=== PATIENT | female | born 1995 | race Caucasian/White ===

== ENCOUNTER 2021-11-11 17:11 | Emergency (ER) | payer BC ==
[~2021-11-11] VITALS: Ht 172.7 cm; Wt 87.5 kg
[2021-11-11 17:11] VITALS: BP_SYST 123
--- NOTE | 2021-11-11 17:11 | NUR ---
TRIAGED AND BROUGHT BACK TO BED #6 VIA WHEELCHAIR, REPORT GIVEN TO SARAVANAN
[2021-11-11] MEDS ORDERED: DIPHENHYDRAMINE INJ 50 MG/ML VIAL IVP ONE (17:45)
[2021-11-11] MEDS ORDERED: METOCLOPRAMIDE HCL 10 MG/2 ML VIAL IVP ONE (17:45)
[2021-11-11] MEDS ORDERED: NACL 0.9% 1,000 ML IV ONE (17:45)
[2021-11-11 17:51] LABS: BASOPHILS # (AUTO) 0.1 K/uL (0.0-0.2); BASOPHILS % (AUTO) 0.5 % (0.0-2.0); EOSINOPHILS % (AUTO) 0.1 % (0.0-4.0); HEMATOCRIT 39.3 % (36-48); HEMOGLOBIN 13.4 g/dL (12.0-16.0); LYMPHOCYTES # (AUTO) 1.3 K/uL (1.0-5.5); LYMPHOCYTES % (AUTO) 9.6 % (20.5-51.5); MEAN CORPUSCULAR HEMOGLOBIN 28 pg (27-31); MEAN CORPUSCULAR HGB CONC 34 % (32-36); MEAN CORPUSCULAR VOLUME 82 fL (79.0-98.0); MONOCYTES # (AUTO) 0.7 K/uL (0.0-1.0); MONOCYTES % (AUTO) 5.4 % (1.7-9.3); NEUTROPHILS # (AUTO) 11.5 K/uL (1.8-7.7); NEUTROPHILS % (AUTO) 84.4 % (40.0-70.0); PLATELET COUNT (AUTO) 313 K/uL (130-430); RED BLOOD CELL COUNT(AUTO) 4.78 MIL/uL (4.2-6.2); RED CELL DISTRIBUTION WIDTH 12.9 % (9.0-15.0); WHITE BLOOD COUNT (AUTO) 13.7 K/uL (4.8-10.8)
[2021-11-11 18:16] LABS: CREATININE 0.61 mg/dL (0.55-1.30); POTASSIUM 3.2 mmol/L (3.5-5.1)
[2021-11-11 18:22] LABS: ALBUMIN 3.5 g/dL (3.4-4.8); TOTAL BILIRUBIN 0.6 mg/dL (0.0-1.0)
--- NOTE | 2021-11-11 18:34 | NUR ---
COVID VITOR SWAB OBTAINED AND SENT TO THE LAB.
[2021-11-11] MEDS ORDERED: POTASSIUM CHLORIDE 20 MEQ/PKT PACKET PO ONE (18:45)
--- NOTE | 2021-11-11 18:50 | NUR ---
DR MELO AT BEDSIDE FOR EVALUATION
[2021-11-11 19:19] LABS: BILIRUBIN,URINE NEGATIVE (NEGATIVE); BLOOD, URINE NEGATIVE (NEGATIVE); CLARITY/URINE CLEAR (CLEAR); COLOR,URINE YELLOW (YELLOW); GLUCOSE,URINE NEGATIVE (NEGATIVE); KETONES,URINE 3+ (NEGATIVE); LEUKOCYTE ESTERASE ,URINE NEGATIVE (NEGATIVE); NITRITE, URINE NEGATIVE (NEGATIVE); PH,URINE 7.5 (5.0-8.0); PROTEIN URINE NEGATIVE (NEGATIVE); UROBILINOGEN,URINE 0.2 (0.2-1.0)
[2021-11-11] MEDS ORDERED: cephALEXin 500 MG CAPSULE PO ONE (19:30)
--- NOTE | 2021-11-11 19:31 | NUR ---
PT BIB FAMILY WITH C/C OF 8 WEEKS GESTATION, , WITH PERSISTENT N/V AND DIZZINESS. REPORTS BEING IN THE ER 2 NIGHTS AGO. STATED BENADRYL AND ZOFRAN GIVEN INEFFECTIVE. TAKE PO ZOFRAN AT HOME THAT DOES NOT WORK. UNABLE TO TOLERATE DIET. RECOMMENDED TO COME TO ED BY HER OBGYN. 1L NS BOLUS GIVEN ALONG WITH BENADRYL 25MG AND REGLAN 10 MG IVP. PT NOW STATED SHE FEELS MUCH BETTER BUT STILL HAS SOME DIZZINESS. REPORTED OFF TO KATIA GOMEZ.
--- NOTE | 2021-11-11 19:38 | NUR ---
JASON Banegas RN PT ENDORSED BY RAQUEL MONTALVO, PT IN BED LOCKED IN LOW POSITION IN STABLE CONDITION. PER MD PT READY FOR D/C. IV TO LEFT AC D/C INTACT. WILL CONTINUE TO MONITOR.
[2021-11-11 20:02] VITALS: BP_SYST 124
[2021-11-11 20:07] LABS: BACTERIA,URINE FEW /HPF (None Seen); MUCUS,URINE 1+ /LPF (None Seen); RBC,URINE NONE SEEN /HPF (0-3); WBC,URINE NONE SEEN /HPF (0-3)
[2021-11-11 20:16] LABS: BARBITURATE, URINE NEGATIVE (NEG <=200); BENZODIAZEPINE, URINE NEGATIVE (NEG <=150); CANNABINOID, URINE NEGATIVE (NEG <=50); COCAINE, URINE NEGATIVE (NEG <=150); METHAMPHETAMINES SCREEN,URINE NEGATIVE (NEG <=500); URINE AMPHETAMINE NEGATIVE (NEG <=500); URINE METHADONE NEGATIVE (NEG <=200)
[2021-11-11 20:17] LABS: OPIATE, URINE POSITIVE (NEG <=100); PHENCYCLIDINE SCREEN,URINE NEGATIVE (NEG <=25); UR TRICYCLIC ANTIDEPRESSANTS NEGATIVE (NEG <=300); URINE OXYCODONE SCREEN NEGATIVE (NEG <=100); URINE PROPOXYPHENE SCREEN NEGATIVE (NEG <=300)
== END 2021-11-11 20:02 | disposition home or self-care (01) ==
LOC: SED 17:11
DX: O21.9 Vomiting of pregnancy, unspecified (principal); Z88.1 Allergy status to other antibiotic agents; Z79.899 Other long term (current) drug therapy; Z3A.12 12 weeks gestation of pregnancy
CPT/HCPCS: 99284; 96374; 96361; 96375; 80307; 80053; 83690; 85025; 36415; 81025; 81000; J1200; J2765; J7030

== ENCOUNTER 2021-11-13 16:19 | Emergency (ER) | payer BC ==
[~2021-11-13] VITALS: Ht 172.7 cm; Wt 86.2 kg
[2021-11-13 16:55] VITALS: BP_SYST 125
--- NOTE | 2021-11-13 17:04 | NUR ---
Patient triaged and placed in waiting room. VSS and patient appears in no acute distress at this time. Accompanied by SIGNIFICANT, awaiting available bed, and MD notified of need for MSE.
[2021-11-13] MEDS ORDERED: NACL 0.9% 1,000 ML IV ONE ×2 (18:00→19:30)
[2021-11-13] MEDS ORDERED: ONDANSETRON HCL 4 MG/2 ML VIAL IVP ONE (18:00)
[2021-11-13] MEDS ORDERED: MORPHINE 4 MG INJ. 4 MG/ML VIAL IVP ONE (18:15)
[2021-11-13 18:39] LABS: BASOPHILS % (AUTO) 0.3 % (0.0-2.0); EOSINOPHILS % (AUTO) 0.1 % (0.0-4.0); HEMATOCRIT 42.1 % (36-48); HEMOGLOBIN 14.5 g/dL (12.0-16.0); LYMPHOCYTES # (AUTO) 1.5 K/uL (1.0-5.5); LYMPHOCYTES % (AUTO) 9.7 % (20.5-51.5); MEAN CORPUSCULAR HEMOGLOBIN 28 pg (27-31); MEAN CORPUSCULAR HGB CONC 34 % (32-36); MEAN CORPUSCULAR VOLUME 83 fL (79.0-98.0); MONOCYTES # (AUTO) 0.9 K/uL (0.0-1.0); MONOCYTES % (AUTO) 5.8 % (1.7-9.3); NEUTROPHILS # (AUTO) 13.1 K/uL (1.8-7.7); NEUTROPHILS % (AUTO) 84.1 % (40.0-70.0); PLATELET COUNT (AUTO) 311 K/uL (130-430); RED BLOOD CELL COUNT(AUTO) 5.09 MIL/uL (4.2-6.2); WHITE BLOOD COUNT (AUTO) 15.6 K/uL (4.8-10.8)
[2021-11-13 18:43] LABS: CALCIUM 8.8 mg/dL (8.4-11.0); CREATININE 0.66 mg/dL (0.55-1.30)
[2021-11-13] MEDS ORDERED: POTASSIUM CHLORIDE 20 MEQ TAB.PRT.SR PO ONE (19:00)
[2021-11-13 19:11] LABS: ALBUMIN 3.5 g/dL (3.4-4.8)
[2021-11-13 19:17] LABS: BLOOD, URINE NEGATIVE (NEGATIVE); COLOR,URINE YELLOW (YELLOW); GLUCOSE,URINE NEGATIVE (NEGATIVE); KETONES,URINE 3+ (NEGATIVE); LEUKOCYTE ESTERASE ,URINE TRACE (NEGATIVE); NITRITE, URINE NEGATIVE (NEGATIVE); PROTEIN URINE 1+ (NEGATIVE)
[2021-11-13 19:24] LABS: BILIRUBIN,URINE 1+ (NEGATIVE); CLARITY/URINE HAZY (CLEAR)
[2021-11-13 19:25] LABS: BACTERIA,URINE FEW /HPF (None Seen); MUCUS,URINE None Seen /LPF (None Seen); RBC,URINE NONE SEEN /HPF (0-3); URINE AMORPHOUS PHOSPHATES 1+ /HPF (None Seen)
--- NOTE | 2021-11-13 19:28 | NUR ---
CELINA Cortes at bedside.
[2021-11-13] MEDS ORDERED: ONDA-8 TL (20:20)
--- NOTE | 2021-11-13 20:50 | NUR ---
Assisting primary RN Rissa barbosa/ patient care. # 20 gauge angiocath placed to right AC. Use of asceptic technique. Opsite placed over site. Blood return noted. Flushed with 10 cc of normal saline. No evidence of infiltration noted. Patient tolerated well.
--- NOTE | 2021-11-13 21:00 | NUR ---
Patient A/Ox4, VSS, resp even and unlabored. Patient resting comfortably with side rails raised. at bedside. NAD noted at this time.
[2021-11-13] MEDS ORDERED: METOCLOPRAMIDE HCL 10 MG/2 ML VIAL IVP ONE (21:30)
--- NOTE | 2021-11-13 21:45 | NUR ---
Patient states she is still nauseous; CELINA Bradford Addendum: 11/13/21 at 2203 by SDEDVT Patient states she is still nauseous; CELINA Cortes notified.
[2021-11-13 21:59] VITALS: BP_SYST 125
--- NOTE | 2021-11-13 22:15 | NUR ---
Patient given written and verbal discharge instructions and verbalizes understanding. ER MD discussed with patient the results and treatment provided. Patient in stable condition. ID arm band removed. IV catheter removed intact and dressing applied, no active bleeding. Patient educated on pain management and to follow up with PMD. Pain Scale 0/10. Opportunity for questions provided and answered. Medication side effect fact sheet provided. Patient A/Ox4, VSS, resp even and unlabored. NAD noted at this time.
--- NOTE | 2021-11-29 05:52 | NUR ---
ADDENDUM: Nacl 0.9% IV 1,000ml Start time 19:05hr End time 20:05hr
== END 2021-11-13 22:32 | disposition home or self-care (01) ==
LOC: SED 16:19
DX: O21.0 Mild hyperemesis gravidarum (principal); Z79.899 Other long term (current) drug therapy; Z88.1 Allergy status to other antibiotic agents; Z3A.12 12 weeks gestation of pregnancy
CPT/HCPCS: 99284; 96374; 96361; 96375; 80053; 81000; 84702; 85025; 86886; 86900; 86901; 36415; J2765; J2405; J2270; J7030

== ENCOUNTER 2022-12-24 14:04 | Emergency (ER) | payer BC ==
[~2022-12-24] VITALS: Ht 172.7 cm; Wt 108.9 kg
[~2022-12-24 14:04] MED LIST: ONDA-8 TL
[2022-12-24 14:05] VITALS: BP_SYST 159; PULSE 72; RESP 19; TEMP 98; O2SAT 100
[2022-12-24] MEDS ORDERED: ONDANSETRON HCL 4 MG/2 ML VIAL IVP ONE (14:45)
[2022-12-24] MEDS ORDERED: NACL 0.9% 1,000 ML IV ONE ×2 (14:45→16:45)
[2022-12-24] MEDS ORDERED: MORPHINE 4 MG INJ. 4 MG/ML VIAL IVP ONE (14:45)
[2022-12-24 15:29] LABS: BASOPHILS % (AUTO) 0.3 % (0.0-2.0); HEMATOCRIT 38.7 % (36-48); HEMOGLOBIN 12.6 g/dL (12.0-16.0); LYMPHOCYTES # (AUTO) 0.8 K/uL (1.0-5.5); MEAN CORPUSCULAR HEMOGLOBIN 27 pg (27-31); MEAN CORPUSCULAR HGB CONC 33 % (32-36); MEAN CORPUSCULAR VOLUME 84 fL (79.0-98.0); MONOCYTES # (AUTO) 0.4 K/uL (0.0-1.0); MONOCYTES % (AUTO) 2.4 % (1.7-9.3); NEUTROPHILS # (AUTO) 14.2 K/uL (1.8-7.7); NEUTROPHILS % (AUTO) 92.3 % (40.0-70.0); PLATELET COUNT (AUTO) 270 K/uL (130-430); RED BLOOD CELL COUNT(AUTO) 4.61 MIL/uL (4.2-6.2); RED CELL DISTRIBUTION WIDTH 13.9 % (9.0-15.0); WHITE BLOOD COUNT (AUTO) 15.4 K/uL (4.8-10.8)
[2022-12-24 15:33] LABS: ANION GAP 10 (5-15); CARBON DIOXIDE 26 mmol/L (23-29); CHLORIDE 98 mmol/L (98-107); CREATININE 0.69 mg/dL (0.55-1.30); GFR AFRICAN AMERICAN 133 mL/min (>90); GLUCOSE 138 mg/dL (74-106); POTASSIUM 3.8 mmol/L (3.5-5.1); SODIUM SERUM 134 mmol/L (136-145); UREA NITROGEN, BLOOD 9 mg/dL (8-21)
[2022-12-24 15:34] LABS: GFR NON AFRICAN-AMERICAN 110 mL/min (>90)
[2022-12-24 15:41] LABS: ALANINE AMINOTRANSFERASE 12 U/L (12-78); ALBUMIN 3.9 g/dL (3.4-4.8); ASPARTATE AMINOTRANSFERASE 11 U/L (10-37); TOTAL BILIRUBIN 0.4 mg/dL (0.0-1.0); TOTAL PROTEIN, SERUM 7.9 g/dL (6.4-8.3)
[2022-12-24 16:06] LABS: BILIRUBIN,URINE NEGATIVE (NEGATIVE); BLOOD, URINE NEGATIVE (NEGATIVE); CLARITY/URINE Clear (CLEAR); COLOR,URINE YELLOW (YELLOW); GLUCOSE,URINE NEGATIVE (NEGATIVE); KETONES,URINE 2+ (NEGATIVE); LEUKOCYTE ESTERASE ,URINE NEGATIVE (NEGATIVE); NITRITE, URINE NEGATIVE (NEGATIVE); PH,URINE >=9.0 (5.0-8.0); PROTEIN URINE 2+ (NEGATIVE); UROBILINOGEN,URINE 0.2 (0.2-1.0)
[2022-12-24 16:08] LABS: HCG,QUAL RESULT NEGATIVE (NEGATIVE)
[2022-12-24 16:32] LABS: BACTERIA,URINE RARE /HPF (None Seen); MUCUS,URINE None Seen /LPF (None Seen); RBC,URINE 0-3 /HPF (0-3); URINE SULFO SALICYLIC ACID NEGATIVE (NEGATIVE); WBC,URINE 0-3 /HPF (0-3)
[2022-12-24] MEDS ORDERED: KETOROLAC TROMETHAMINE 15 MG VIAL IVP ONE (16:45)
[2022-12-24] MEDS ORDERED: KETOROLAC TROMETHAMINE 30 MG VIAL ONE (17:10)
[2022-12-24] MEDS ORDERED: MECLIZINE HCL 25 MG TABLET (ANITVERT) PO ONE (18:00)
[2022-12-24] MEDS ORDERED: MECL-108 PO (18:35)
[2022-12-24] MEDS ORDERED: IBUP-1969 PO (18:35)
[2022-12-24 19:10] VITALS: BP_SYST 128; PULSE 56; RESP 20; TEMP 97.6; O2SAT 100
== END 2022-12-24 18:55 | disposition home or self-care (01) ==
LOC: SED 14:04
DX: N83.202 Unspecified ovarian cyst, left side (principal); R42 Dizziness and giddiness; R11.2 Nausea with vomiting, unspecified; R10.30 Lower abdominal pain, unspecified; Z88.1 Allergy status to other antibiotic agents; Z79.899 Other long term (current) drug therapy
CPT/HCPCS: 99285; 70450; 96374; 76856; 71045; 96375; 96361; 80053; 81000; 84703; 85025; 84484; 36415; 93005; 76376; 74177; 81025; J8597; J1885; J2405; J2270; Q9967; J7030

== ENCOUNTER 2023-06-20 17:08 | Emergency (ER) | payer BC ==
[~2023-06-20] VITALS: Ht 160 cm; Wt 72.6 kg
[~2023-06-20 17:08] MED LIST changes: +ACET325T PO; +MECL-292 PO; +METO10TA3 PO; -ONDA-8 TL; +ONDA8TAB60 PO
[2023-06-20 17:41] VITALS: BP_SYST 134; PULSE 96; RESP 18; TEMP 98.3; O2SAT 97
[2023-06-20] MEDS: METOCLOPRAMIDE HCL 10 MG/2 ML VIAL IVP ONE (18:01)
[2023-06-20] MEDS: NACL 0.9% 1,000 ML IV ONE (18:04)
[2023-06-20 18:30] LABS: MONOCYTES # (AUTO) 0.2 K/uL (0.0-1.0); RED CELL DISTRIBUTION WIDTH 13.6 % (9.0-15.0)
[2023-06-20 18:37] LABS: BASOPHILS % (AUTO) 0.1 % (0.0-2.0); HEMOGLOBIN 13.5 g/dL (12.0-16.0); LYMPHOCYTES # (AUTO) 0.5 K/uL (1.0-5.5); LYMPHOCYTES % (AUTO) 3.1 % (20.5-51.5); MEAN CORPUSCULAR HEMOGLOBIN 29 pg (27-31); MEAN CORPUSCULAR HGB CONC 35 % (32-36); MEAN CORPUSCULAR VOLUME 85 fL (79.0-98.0); NEUTROPHILS # (AUTO) 15.7 K/uL (1.8-7.7); NEUTROPHILS % (AUTO) 95.8 % (40.0-70.0); PLATELET COUNT (AUTO) 329 K/uL (130-430); RED BLOOD CELL COUNT(AUTO) 4.62 MIL/uL (4.2-6.2); WHITE BLOOD COUNT (AUTO) 16.4 K/uL (4.8-10.8)
[2023-06-20 18:42] LABS: ALBUMIN 3.7 g/dL (3.4-4.8); BILIRUBIN,DIRECT 0.1 mg/dL (0.0-0.3); CALCIUM 9.2 mg/dL (8.4-11.0); CREATININE 0.71 mg/dL (0.55-1.30); POTASSIUM 4.1 mmol/L (3.5-5.1); TOTAL BILIRUBIN 0.3 mg/dL (0.0-1.0); TOTAL PROTEIN, SERUM 7.8 g/dL (6.4-8.3)
[2023-06-20] MEDS: fentaNYL CITRATE/PF 100 MCG/2 ML AMP IVP ONE (19:49)
[2023-06-20] MEDS ORDERED: ONDA-8 TL (20:29)
[2023-06-20 20:52] VITALS: BP_SYST 140; PULSE 97; RESP 16; TEMP 98.3; O2SAT 97
== END 2023-06-20 20:52 | disposition home or self-care (01) ==
LOC: SED 17:08
DX: O21.0 Mild hyperemesis gravidarum (principal); Z88.8 Allergy status to other drugs, medicaments and biological substances; Z3A.01 Less than 8 weeks gestation of pregnancy
CPT/HCPCS: 99284; 96374; 96361; 96375; 80076; 80048; 84702; 83690; 85025; 36415; J2765; J3010

== ENCOUNTER 2023-07-08 07:10 | Observation (INO) | payer BC ==
[~2023-07-08] VITALS: Ht 172.7 cm; Wt 91.6 kg
[~2023-07-08 07:10] MED LIST changes: +ONDA-8 TL
[2023-07-08 07:31] VITALS: BP_SYST 130; PULSE 83; RESP 18; TEMP 98.3; O2SAT 98
[2023-07-08 07:47] LABS: BASOPHILS % (AUTO) 0.2 % (0.0-2.0); EOSINOPHILS % (AUTO) 0.2 % (0.0-4.0); HEMATOCRIT 41.9 % (36-48); HEMOGLOBIN 14.4 g/dL (12.0-16.0); LYMPHOCYTES # (AUTO) 1.3 K/uL (1.0-5.5); LYMPHOCYTES % (AUTO) 10.9 % (20.5-51.5); MEAN CORPUSCULAR HEMOGLOBIN 29 pg (27-31); MEAN CORPUSCULAR HGB CONC 34 % (32-36); MEAN CORPUSCULAR VOLUME 84 fL (79.0-98.0); MONOCYTES # (AUTO) 0.6 K/uL (0.0-1.0); MONOCYTES % (AUTO) 5.3 % (1.7-9.3); NEUTROPHILS % (AUTO) 83.4 % (40.0-70.0); PLATELET COUNT (AUTO) 326 K/uL (130-430); RED CELL DISTRIBUTION WIDTH 13.9 % (9.0-15.0); WHITE BLOOD COUNT (AUTO) 11.9 K/uL (4.8-10.8)
[2023-07-08] MEDS: ONDANSETRON HCL 4 MG/2 ML VIAL IVP ONE (08:08)
[2023-07-08] MEDS: NACL 0.9% 1,000 ML IV ONE (08:09)
[2023-07-08 08:17] LABS: ALANINE AMINOTRANSFERASE 257 U/L (12-78); ALBUMIN 3.5 g/dL (3.4-4.8); AMYLASE 37 U/L (0-100); ANION GAP 13 (5-15); ASPARTATE AMINOTRANSFERASE 64 U/L (10-37); BILIRUBIN,DIRECT 0.3 mg/dL (0.0-0.3); CALCIUM 9.2 mg/dL (8.4-11.0); CARBON DIOXIDE 25 mmol/L (23-29); CHLORIDE 91 mmol/L (98-107); CREATININE 0.71 mg/dL (0.55-1.30); GFR AFRICAN AMERICAN 129 mL/min (>90); GLUCOSE 92 mg/dL (74-106); LIPASE 37 U/L (16-77); SODIUM SERUM 129 mmol/L (136-145); TOTAL BILIRUBIN 0.6 mg/dL (0.0-1.0); TOTAL PROTEIN, SERUM 7.8 g/dL (6.4-8.3); UREA NITROGEN, BLOOD 6 mg/dL (8-21)
[2023-07-08 08:18] LABS: GFR NON AFRICAN-AMERICAN 107 mL/min (>90); HCG,QUANTITATIVE 116582 mIU/ML (0-6)
[2023-07-08 08:29] LABS: POTASSIUM 2.7 mmol/L (3.5-5.1)
[2023-07-08 08:35] LABS: ACETONE, SERUM NEGATIVE (NEGATIVE)
[2023-07-08] MEDS: POTASSIUM CHLORIDE 20 MEQ/PKT PACKET PO ONE (09:35)
[2023-07-08] MEDS: POTASSIUM CHLORIDE 40 MEQ in LR 1,000 ML IV SCH (10:00)
[2023-07-08 11:41] LABS: BILIRUBIN,URINE 2+ (NEGATIVE); BLOOD, URINE NEGATIVE (NEGATIVE); CLARITY/URINE CLEAR (CLEAR); COLOR,URINE YELLOW (YELLOW); GLUCOSE,URINE NEGATIVE (NEGATIVE); KETONES,URINE 3+ (NEGATIVE); LEUKOCYTE ESTERASE ,URINE TRACE (NEGATIVE); NITRITE, URINE NEGATIVE (NEGATIVE); PROTEIN URINE TRACE (NEGATIVE)
[2023-07-08 12:10] LABS: BACTERIA,URINE FEW /HPF (None Seen); RBC,URINE 0-3 /HPF (0-3)
[2023-07-08] MEDS: METOCLOPRAMIDE HCL 10 MG/2 ML VIAL IVP SCH (13:05)
[2023-07-08] MEDS ORDERED: ONDA-8 TL (15:32)
[2023-07-08] MEDS: ONDANSETRON HCL 4 MG/2 ML VIAL IVP SCH (17:46)
[2023-07-08] MEDS: SERTRALINE HCL 50 MG TABLET PO ONE (22:13)
[2023-07-08] MEDS: ACETAMINOPHEN 500 MG TABLET PO PRN (22:14)
[2023-07-08 22:18] VITALS: BP_SYST 120; PULSE 67; RESP 18; TEMP 98.8
[2023-07-09] VITALS (7 sets, daily range): BP systolic 110–135; PULSE 71–85; RESP 16–19; TEMP 97.1–97.8; O2SAT 95–99
[2023-07-09] MEDS ORDERED: LOPERAMIDE HCL 2 MG CAPSULE PO ONE (06:00)
[2023-07-09] MEDS ORDERED: HYDROcodone/ACETAMIN 5-325 MG TAB (NORCO/ VICODIN) PO PRN (18:15)
[2023-07-09] MEDS: ACETAMINOPHEN 500 MG TABLET PO ONE (20:30)
[2023-07-09] MEDS: SERTRALINE HCL 50 MG TABLET PO ONE (20:55)
[2023-07-10 00:05] VITALS: BP_SYST 124; PULSE 75; RESP 19; TEMP 97.1; O2SAT 98
[2023-07-10 08:28] VITALS: BP_SYST 142; PULSE 76; RESP 19; TEMP 97.9; O2SAT 97
[2023-07-10 08:40] VITALS: O2SAT 98
[2023-07-10 09:11] VITALS: BP_SYST 140; PULSE 76; RESP 18; TEMP 97.9; O2SAT 97
[2023-07-12 03:07] LABS: HEPATITIS A AB, IgM Negative (Negative); HEPATITIS B CORE AB, IgM Negative (Negative); HEPATITIS B SURFACE AG Negative (Negative); HEPATITIS C VIRUS AB Non Reactive (Non Reactive)
== END 2023-07-10 09:30 | disposition home or self-care (01) ==
LOC: SED 07:10 → STU 10:59
PROVIDERS: ADMIT Obstetrics & Gynecology; ATTEND Obstetrics & Gynecology
DX: O21.1 Hyperemesis gravidarum with metabolic disturbance (principal); O99.211 Obesity complicating pregnancy, first trimester; E66.9 Obesity, unspecified; O26.892 Other specified pregnancy related conditions, second trimester; R74.01 Elevation of levels of liver transaminase levels; Z3A.09 9 weeks gestation of pregnancy
CPT/HCPCS: 96361; 96365; 96366 ×3; 96375; 96376 ×3; 80076; 80048; 81000; 81015; 81001; 82009; 82150; 84702; 83690; 85025; 36415 ×2; 76801; 99285; 76700; 80074; J2765 ×3; J2405 ×3; J3480 ×2; J7120 ×2; G0378 ×3

== ENCOUNTER 2023-07-19 08:22 | Emergency (ER) | payer BC ==
[~2023-07-19] VITALS: Ht 175.3 cm; Wt 86.2 kg
[~2023-07-19 08:22] MED LIST changes: -ONDA-8 TL
[2023-07-19 08:29] VITALS: BP_SYST 123; BP_SYST 129; PULSE 73; RESP 18; TEMP 98.3; O2SAT 98
[2023-07-19 09:17] LABS: BASOPHILS % (AUTO) 0.2 % (0.0-2.0); EOSINOPHILS % (AUTO) 0.1 % (0.0-4.0); HEMATOCRIT 39.4 % (36-48); HEMOGLOBIN 13.8 g/dL (12.0-16.0); LYMPHOCYTES # (AUTO) 1.1 K/uL (1.0-5.5); LYMPHOCYTES % (AUTO) 11.4 % (20.5-51.5); MEAN CORPUSCULAR HEMOGLOBIN 29 pg (27-31); MEAN CORPUSCULAR HGB CONC 35 % (32-36); MEAN CORPUSCULAR VOLUME 83 fL (79.0-98.0); MONOCYTES # (AUTO) 0.5 K/uL (0.0-1.0); NEUTROPHILS # (AUTO) 7.9 K/uL (1.8-7.7); NEUTROPHILS % (AUTO) 83.3 % (40.0-70.0); PLATELET COUNT (AUTO) 298 K/uL (130-430); RED BLOOD CELL COUNT(AUTO) 4.75 MIL/uL (4.2-6.2); RED CELL DISTRIBUTION WIDTH 13.8 % (9.0-15.0); WHITE BLOOD COUNT (AUTO) 9.5 K/uL (4.8-10.8)
[2023-07-19] MEDS: PROCHLORPERAZINE EDISYLATE 10 MG/2 ML VIAL IVP ONE (09:24)
[2023-07-19] MEDS: NACL 0.9% 1,000 ML IV ONE (09:24)
[2023-07-19] MEDS: MORPHINE 4 MG INJ. 4 MG/ML VIAL IVP ONE (09:25)
[2023-07-19 09:33] LABS: ALBUMIN 3.4 g/dL (3.4-4.8); BILIRUBIN,DIRECT 0.3 mg/dL (0.0-0.3); CALCIUM 9.2 mg/dL (8.4-11.0); CREATININE 0.62 mg/dL (0.55-1.30); POTASSIUM 3.2 mmol/L (3.5-5.1); TOTAL BILIRUBIN 0.6 mg/dL (0.0-1.0); TOTAL PROTEIN, SERUM 7.4 g/dL (6.4-8.3)
[2023-07-19 10:47] LABS: BILIRUBIN,URINE 2+ (NEGATIVE); CLARITY/URINE CLEAR (CLEAR); COLOR,URINE YELLOW (YELLOW); GLUCOSE,URINE NEGATIVE (NEGATIVE); KETONES,URINE 3+ (NEGATIVE); LEUKOCYTE ESTERASE ,URINE 1+ (NEGATIVE); NITRITE, URINE NEGATIVE (NEGATIVE); PROTEIN URINE TRACE (NEGATIVE)
[2023-07-19 11:26] LABS: BLOOD, URINE TRACE (NEGATIVE)
[2023-07-19 11:28] LABS: BACTERIA,URINE FEW /HPF (None Seen)
[2023-07-19] MEDS ORDERED: COMR25 RC (11:45)
[2023-07-19] MEDS ORDERED: HYDR-3917 PO (11:45)
[2023-07-19] MEDS ORDERED: CEPH-548 PO (11:45)
[2023-07-19] MEDS ORDERED: VIS25 PO (11:45)
[2023-07-19] MEDS ORDERED: CEPH250S PO (11:54)
[2023-07-19 11:57] VITALS: BP_SYST 116; PULSE 76; RESP 20; TEMP 98.3; O2SAT 98
== END 2023-07-19 11:55 | disposition home or self-care (01) ==
LOC: SED 08:22
DX: O21.0 Mild hyperemesis gravidarum (principal); O26.891 Other specified pregnancy related conditions, first trimester; R10.9 Unspecified abdominal pain; Z3A.12 12 weeks gestation of pregnancy; Z88.1 Allergy status to other antibiotic agents
CPT/HCPCS: 99284; 96374; 96361; 96375; 80076; 80048; 81000; 81001; 83690; 85025; 87086; 36415; 81015; J0780; J2270; J7030

== ENCOUNTER 2023-07-31 15:30 | Emergency (ER) | payer BC ==
[~2023-07-31] VITALS: Ht 172.7 cm; Wt 81.6 kg
[~2023-07-31 15:30] MED LIST changes: +CEPH250S PO; +COMR25 RC; +HYDR-3917 PO; +VIS25 PO
[2023-07-31 16:16] VITALS: BP_SYST 130; PULSE 97; RESP 18; TEMP 98.5; O2SAT 97
[2023-07-31 16:57] LABS: BASOPHILS % (AUTO) 0.4 % (0.0-2.0); EOSINOPHILS % (AUTO) 0.1 % (0.0-4.0); HEMATOCRIT 37.1 % (36-48); HEMOGLOBIN 12.8 g/dL (12.0-16.0); LYMPHOCYTES # (AUTO) 0.6 K/uL (1.0-5.5); LYMPHOCYTES % (AUTO) 7.4 % (20.5-51.5); MEAN CORPUSCULAR HEMOGLOBIN 29 pg (27-31); MEAN CORPUSCULAR HGB CONC 34 % (32-36); MEAN CORPUSCULAR VOLUME 84 fL (79.0-98.0); MONOCYTES # (AUTO) 0.2 K/uL (0.0-1.0); MONOCYTES % (AUTO) 1.9 % (1.7-9.3); NEUTROPHILS # (AUTO) 7.5 K/uL (1.8-7.7); NEUTROPHILS % (AUTO) 90.2 % (40.0-70.0); PLATELET COUNT (AUTO) 295 K/uL (130-430); RED BLOOD CELL COUNT(AUTO) 4.42 MIL/uL (4.2-6.2); RED CELL DISTRIBUTION WIDTH 14.6 % (9.0-15.0); WHITE BLOOD COUNT (AUTO) 8.3 K/uL (4.8-10.8)
[2023-07-31] MEDS: NACL 0.9% 1,000 ML IV ONE (17:13)
[2023-07-31] MEDS: ONDANSETRON HCL 4 MG/2 ML VIAL IVP ONE (17:16)
[2023-07-31] MEDS: MORPHINE 4 MG INJ. 4 MG/ML VIAL IVP ONE (17:16)
[2023-07-31 17:38] LABS: ALBUMIN 3.4 g/dL (3.4-4.8); BILIRUBIN,DIRECT 0.2 mg/dL (0.0-0.3); CALCIUM 8.2 mg/dL (8.4-11.0); CREATININE 0.56 mg/dL (0.55-1.30); TOTAL BILIRUBIN 0.4 mg/dL (0.0-1.0); TOTAL PROTEIN, SERUM 7.2 g/dL (6.4-8.3)
[2023-07-31] MEDS ORDERED: BUTA1CAP43 PO (17:43)
[2023-07-31] MEDS ORDERED: PHE25 PO (17:43)
[2023-07-31 17:52] LABS: POTASSIUM 2.9 mmol/L (3.5-5.1)
[2023-07-31] MEDS ORDERED: POTASSIUM CHLORIDE 20 MEQ/PKT PACKET ONE (18:39)
[2023-07-31] MEDS: POTASSIUM CHLORIDE 20 MEQ/PKT PACKET PO ONE (18:45)
[2023-07-31] MEDS: METOCLOPRAMIDE HCL 10 MG/2 ML VIAL IVP ONE (19:44)
[2023-07-31 19:45] VITALS: RESP 18; TEMP 98.1; O2SAT 100
[2023-07-31] MEDS: DIPHENHYDRAMINE INJ 50 MG/ML VIAL IVP ONE (19:52)
[2023-07-31] MEDS: ACETAMINOPHEN 325 MG TABLET PO ONE (19:55)
[2023-07-31 20:25] VITALS: BP_SYST 120; PULSE 72
[2023-08-01] MEDS ORDERED: ACET1TAB93 PO (10:20)
== END 2023-07-31 20:05 | disposition home or self-care (01) ==
LOC: SED 15:30
DX: G43.909 Migraine, unspecified, not intractable, without status migrainosus (principal); E86.0 Dehydration; E87.6 Hypokalemia; N93.9 Abnormal uterine and vaginal bleeding, unspecified; R11.2 Nausea with vomiting, unspecified; Z88.1 Allergy status to other antibiotic agents
CPT/HCPCS: 99284; 96374; 96375; 96361; 80076; 80048; 84702; 85025; 36415; J1200; J2765; J2405; J2270; J7030

== ENCOUNTER 2023-08-02 10:07 | Emergency (ER) | payer BC ==
[~2023-08-02] VITALS: Ht 172.7 cm; Wt 81.6 kg
[~2023-08-02 10:07] MED LIST changes: +ACET1TAB93 PO; +PHE25 PO
[2023-08-02 10:14] VITALS: BP_SYST 122; PULSE 75; RESP 20; TEMP 98.3; O2SAT 98
[2023-08-02 11:11] LABS: BASOPHILS % (AUTO) 0.3 % (0.0-2.0); EOSINOPHILS % (AUTO) 0.1 % (0.0-4.0); HEMATOCRIT 39.9 % (36-48); HEMOGLOBIN 13.8 g/dL (12.0-16.0); LYMPHOCYTES # (AUTO) 0.8 K/uL (1.0-5.5); LYMPHOCYTES % (AUTO) 7.9 % (20.5-51.5); MEAN CORPUSCULAR HEMOGLOBIN 29 pg (27-31); MEAN CORPUSCULAR HGB CONC 35 % (32-36); MEAN CORPUSCULAR VOLUME 85 fL (79.0-98.0); MONOCYTES # (AUTO) 0.3 K/uL (0.0-1.0); MONOCYTES % (AUTO) 2.6 % (1.7-9.3); NEUTROPHILS # (AUTO) 8.8 K/uL (1.8-7.7); NEUTROPHILS % (AUTO) 89.1 % (40.0-70.0); PLATELET COUNT (AUTO) 344 K/uL (130-430); RED BLOOD CELL COUNT(AUTO) 4.71 MIL/uL (4.2-6.2); RED CELL DISTRIBUTION WIDTH 14.4 % (9.0-15.0); WHITE BLOOD COUNT (AUTO) 9.8 K/uL (4.8-10.8)
[2023-08-02 11:30] LABS: ALBUMIN 3.8 g/dL (3.4-4.8); BILIRUBIN,DIRECT 0.2 mg/dL (0.0-0.3); CALCIUM 8.4 mg/dL (8.4-11.0); CREATININE 0.63 mg/dL (0.55-1.30); TOTAL BILIRUBIN 0.5 mg/dL (0.0-1.0); TOTAL PROTEIN, SERUM 7.3 g/dL (6.4-8.3)
[2023-08-02] MEDS: NACL 0.9% 1,000 ML IV ONE (11:33)
[2023-08-02 11:34] LABS: POTASSIUM 2.9 mmol/L (3.5-5.1)
[2023-08-02] MEDS: HALOPERIDOL LACTATE 5 MG/ML VIAL IVP ONE (11:34)
[2023-08-02] MEDS: DIPHENHYDRAMINE INJ 50 MG/ML VIAL IVP ONE (11:38)
[2023-08-02] MEDS ORDERED: HALOPERIDOL LACTATE 5 MG/ML VIAL IVP ONE (12:15)
[2023-08-02] MEDS: KETOROLAC TROMETHAMINE 30 MG VIAL IVP ONE (12:40)
[2023-08-02] MEDS: POTASSIUM CHLORIDE 20 MEQ TABLET.ER PO ONE (12:40)
[2023-08-02] MEDS: LORazepam 2 MG/ML VIAL IVP ONE (12:49)
[2023-08-02 13:12] LABS: BILIRUBIN,URINE 1+ (NEGATIVE); BLOOD, URINE 3+ (NEGATIVE); COLOR,URINE YELLOW (YELLOW); GLUCOSE,URINE NEGATIVE (NEGATIVE); KETONES,URINE 3+ (NEGATIVE); LEUKOCYTE ESTERASE ,URINE TRACE (NEGATIVE); NITRITE, URINE NEGATIVE (NEGATIVE); PH,URINE 6.5 (5.0-8.0); PROTEIN URINE 1+ (NEGATIVE); UROBILINOGEN,URINE 0.2 (0.2-1.0)
[2023-08-02 13:13] LABS: CLARITY/URINE SLIGHTLY CLOUDY (CLEAR)
[2023-08-02 13:33] LABS: BACTERIA,URINE FEW /HPF (None Seen); BARBITURATE, URINE NEGATIVE (NEG <=200); BENZODIAZEPINE, URINE NEGATIVE (NEG <=150); CANNABINOID, URINE POSITIVE (NEG <=50); COCAINE, URINE NEGATIVE (NEG <=150); METHAMPHETAMINES SCREEN,URINE NEGATIVE (NEG <=500); OPIATE, URINE POSITIVE (NEG <=100); PHENCYCLIDINE SCREEN,URINE NEGATIVE (NEG <=25); UR TRICYCLIC ANTIDEPRESSANTS NEGATIVE (NEG <=300); URINE AMPHETAMINE NEGATIVE (NEG <=500); URINE METHADONE NEGATIVE (NEG <=200); URINE OXYCODONE SCREEN NEGATIVE (NEG <=100)
[2023-08-02] MEDS ORDERED: POTA-197 PO (13:59)
[2023-08-02] MEDS ORDERED: HAL5 PO (13:59)
[2023-08-02] MEDS ORDERED: BENZ1TAB82 PO (13:59)
[2023-08-02 14:11] VITALS: BP_SYST 126; PULSE 75; RESP 20; TEMP 98.3; O2SAT 98
== END 2023-08-02 14:15 | disposition home or self-care (01) ==
LOC: SED 10:07
DX: R11.10 Vomiting, unspecified (principal); Z88.1 Allergy status to other antibiotic agents; Z79.899 Other long term (current) drug therapy
CPT/HCPCS: 99284; 96374; 96375; 96361; 80307; 80076; 80048; 81000; 83690; 85025; 36415; 81001; 81015; J1200; J1630; J1885; J2060; J7030

== ENCOUNTER 2023-08-05 05:02 | Emergency (ER) | payer BC ==
[~2023-08-05] VITALS: Ht 172.7 cm; Wt 81.6 kg
[~2023-08-05 05:02] MED LIST changes: +BENZ1TAB82 PO; +HAL5 PO; +POTA-197 PO
[2023-08-05 06:00] VITALS: BP_SYST 130; PULSE 86; RESP 16; TEMP 98.4; O2SAT 97
[2023-08-07] MEDS ORDERED: METO-290 PO (05:43)
[2023-08-08] MEDS ORDERED: METO-290 PO (16:27)
[2023-08-08] MEDS ORDERED: LORA-259 PO (16:27)
== END 2023-08-05 06:38 | disposition left against medical advice (07) ==
LOC: SED 05:02
DX: R51.9 Headache, unspecified (principal); Z53.21 Procedure and treatment not carried out due to patient leaving prior to being seen by health care provider; Z88.1 Allergy status to other antibiotic agents
CPT/HCPCS: 99281